=== PATIENT | male | born 1980 | race Two or more races ===

== ENCOUNTER 2025-02-23 08:30 | Outpatient (REF) | payer MEDICAID, SELFPAY ==
--- OUTSIDE RECORDS SUMMARY | 2025-02-23 08:48 | XMS_ITS | Patient Health Record ---
Author Organization [facility] In . 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 Yes with Women only Use Protection? Yes How often? All of the time STD prevention strategies discussed: Condoms Have you ever had an STD? No LMP: Male Smoking: Question Answer Notes Are you a: never smoker Alcohol Screen: (18 and above) Question Answer Notes Did you have a drink contain ing alcohol in the past year? Yes How often did you have six o r more drinks on one occasion in the past year? Monthly or less (1 point) How many drinks did you have on a typical day when you were drinking in the past year? 3 or 4 (1 point) How often did you have a dri nk containing alcohol in the past year? Less than monthly (1 point) Points: 3 Interpretation: Negative Plan Of Treatment Future Test Test Name Order Date COMPREHENSIVE METABOLIC 01/11/2022 HEPATITIS B PANEL 01/11/2022 HGB A1c 01/11/2022 LIPID SCREEN 01/11/2022 CBC w/DIFF, PLATELET CT. 01/11/2022 TSH W/RFX TO FREE T4 01/11/2022 HIV AG/AB 4TH GEN, HIV test offered and accepted 01/11/2022 Insurance Providers Payer Name Payer Address Payer Phone Subscriber Number Group Number Insured Name Patient Relationship to Insured Coverage Start Date Coverage End Date Sliding Fee Scale A(Nominal Fee) [id number] Self - patient is the insured Medical (General) History Surgical History Surgery Date(Month/Year) Eye surgery 1999
[2025-02-23 11:53] LABS: Anion Gap 12 (12-20); Blood Urea Nitrogen 13 mg/dL (9-16); Carbon Dioxide 27 mmol/L (22-29); Chloride 103 mmol/L (96-108); Cholesterol 194 mg/dL (<200); Estimated Glomerular Filt Rate > 60; Glucose Random 125 mg/dL (60-115); HDL Cholesterol 38 mg/dL (>40); LDL Cholesterol Calculated 129 mg/dL (<100); Potassium 4.1 mmol/L (3.3-5.1); Sodium 138 mmol/L (135-145); Triglycerides 138 mg/dL (<150)
[2025-02-23 11:55] LABS: Estimated Average Glucose 151 mg/dL; Hemoglobin A1C 201.0668 umol/L; Hemoglobin A1c % 6.9 % (<6.0)
[2025-02-23 12:08] LABS: Creatinine Urine 195.31 mg/dL; Microalbum/Creatinine Ratio Ur 46.5 ug/mg cr (<30)
== END 2025-02-23 08:31 | disposition home or self-care (01) ==
LOC: HO.HHCL 08:30
PROVIDERS: Visit Provider Nurse Practitioner
DX: E66.9 Obesity, unspecified (principal); I10 Essential (primary) hypertension
CPT/HCPCS: 36415; 80048; 80061; 82043; 82570; 83036